=== PATIENT | female | born 1975 | race Caucasian/White ===

== ENCOUNTER 2016-07-01 10:06 | Emergency (ER) | payer MEDICAID ==
[2016-07-01] VITALS (7 sets, daily range): BP systolic 105–140; BP diastolic 70–88
[~2016-07-01] VITALS: Ht 175.3 cm; Wt 81.6 kg
[~2016-07-01 10:06] MED LIST: IBUPROFEN600 MG ORAL; PENICILLIN V P500 MG PO
[2016-07-01] MEDS ORDERED: Tubing IV Cassette IV ONE (10:25)
[2016-07-01 10:32] LABS: BASOPHILS % (AUTO) 0.7 % (0.0-2.0); EOSINOPHILS % (AUTO) 0.4 % (0.0-3.0); LYMPHOCYTES % (AUTO) 24.5 % (20.0-45.0); MEAN CORPUSCULAR HEMOGLOBIN 34.2 PG (27.0-31.0); MEAN CORPUSCULAR HGB CONC 34.9 G/DL (32.0-36.0); MEAN CORPUSCULAR VOLUME 98 FL (80-99); NEUTROPHILS % (AUTO) 67.3 % (45.0-75.0); PLATELET COUNT 610 K/UL (150-450); RED BLOOD COUNT 4.86 M/UL (4.20-5.40); RED CELL DISTRIBUTION WIDTH 11.5 % (11.6-14.8); WHITE BLOOD COUNT 9.3 K/UL (4.8-10.8)
[2016-07-01 10:42] LABS: ACETAMINOPHEN < 10 ug/mL (10-30); ALANINE AMINOTRANSFERASE 65 U/L (3-33); ALBUMIN/GLOBULIN RATIO 1.6 (1.0-2.7); ALCOHOL 277 mg/dL; ANION GAP 23 (5-15); ASPARTATE AMINO TRANSFERASE 97 U/L (5-40); CALCIUM 9.1 mg/dL (8.6-10.2); CARBON DIOXIDE 25 mEQ/L (20-30); CHLORIDE 92 mEQ/L (98-107); CREATININE 0.9 mg/dL (0.5-0.9); GLOMERULAR FILTRATION RATE > 60 mL/min (>60); HEMOLYSIS 39; POTASSIUM 4.1 mEQ/L (3.4-4.9); SODIUM 140 mEQ/L (135-145); TOTAL PROTEIN 7.8 g/dL (6.6-8.7)
[2016-07-01] MEDS ORDERED: BUPROPION XL300 MG ORAL (10:44)
[2016-07-01] MEDS ORDERED: KLONOPIN0.5 MG ORAL (10:44)
[2016-07-01] MEDS ORDERED: Antidepressant (10:44)
[2016-07-01] MEDS ORDERED: Famotidine 20 MG/ 2ML VIAL IVP ONE (11:15)
[2016-07-01] MEDS ORDERED: LORazepam Inj 2mg/ml 1ml ONE (11:27)
[2016-07-01] MEDS ORDERED: LORazepam Inj 2mg/ml 1ml IV ONE (11:30)
--- NOTE | 2016-07-01 15:04 | Emergency Room Report ---
History of Present Illness General Chief Complaint: Alcohol Intoxication Source: Patient Present Illness HPI 40-year-old female presents to ED for evaluation. EMS stated that patient has drank 3 bottles of vodka in the last few days. Patient is intoxicated upon arrival. Friend called 911 because she was concerned about the patient. Concern about possible danger to self. Patient denies any suicidal or homicidal ideation. Denies hearing voices. Denies any drug use. Patient is nauseous and vomiting. Denies any abdominal pain. No other aggravating relieving factors. Denies any other associated symptoms Allergies: Coded Allergies: NO KNOWN ALLERGIES (Unverified Allergy, Unknown, 03/12/15) Patient History Past Medical History: psych hx Past Surgical History: none Pertinent Family History: none Social History: Reports: alcohol use, Denies: drug use, smoking Last Menstrual Period: "I don't know" Now: No - (Denies) Reviewed Nursing Documentation: PMH: Agreed, PSxH: Agreed Nursing Documentation-PMH History Of Psychiatric Problem: Yes - Depression; Anxiety Review of Systems All Other Systems: negative except mentioned in HPI Physical Exam Vital Signs Date Time Temp Pulse Resp B/P Pulse Ox O2 Delivery O2 Flow Rate FiO2 07/01/16 09:59 100.0 98 18 149/95 98 Room Air Sp02 EP Interpretation: reviewed, normal General Appearance: no apparent distress, GCS 15, non-toxic, other - intoxicated Head: normocephalic, atraumatic Eyes: bilateral eye PERRL, bilateral eye normal inspection ENT: hearing grossly normal, normal pharynx, no angioedema, normal voice Neck: full range of motion, supple/symm/no masses Respiratory: chest non-tender, lungs clear, normal breath sounds, speaking full sentences Cardiovascular #1: regular rate, rhythm, no edema Cardiovascular #2: 2+ carotid (R), 2+ carotid (L), 2+ radial (R), 2+ radial (L) , 2+ dorsalis pedis (R), 2+ dorsalis pedis (L) Gastrointestinal: normal bowel sounds, non tender, soft, non-distended, no guarding, no rebound Rectal: deferred Genitourinary: normal inspection, no CVA tenderness Musculoskeletal: back normal, gait/station normal, normal range of motion, non- tender, calf tenderness Neurologic: alert, motor strength/tone normal, sensory intact, speech normal, other - intoxicated Psychiatric: mood/affect normal, no suicidal/homicidal ideation, other - intoxicated Reflexes: 3+ bicep (R), 3+ bicep (L), 3+ tricep (R), 3+ tricep (L), 3+ knee (R) , 3+ knee (L) Skin: normal color, no rash, warm/dry, well hydrated Lymphatic: no adenopathy Medical Decision Making Diagnostic Impression: Primary Impression: Acute alcoholic intoxication Qualified Codes: F10.129 - Alcohol abuse with intoxication, unspecified ER Course Hospital Course 40-year-old F presents to ED with altered mental status. History of alcohol abuse Differential diagnoses include: Psychosis, EtOH, drug abuse Clinical course patient placed on stretcher. On director of cardiac rehabilitation. After initial history and physical ordered labs, IV fluids, zofran, pepcid Labs reviewed-electrolytes okay, no leukocytosis, hemoglobin/hematocrit stable, ETOH > 200 Patient required Ativan for anxiety. Patient allowed to rest. Patient is now awake alert oriented x3, ambulating. No evidence of suicidal homicidal ideation. Patient be safely discharged to home i. I feel this is a highly complex case requiring extensive working including EKG/Rhythm strip, Xray/CT/US, Blood/urine lab work, repeat exams while in ED, and administration of strong opiates/narcotics for pain control, admission to hospital or close patient follow up. Diagnosis - ETOH intoxication Stable and discharged to home. Followup with PMD. Return to ED if symptoms recur or worsen Labs Test 07/01/16 10:20 White Blood Count 9.3 K/UL (4.8-10.8) Red Blood Count 4.86 M/UL (4.20-5.40) Hemoglobin 16.6 G/DL (12.0-16.0) Hematocrit 47.6 % (37.0-47.0) Mean Corpuscular Volume 98 FL (80-99) Mean Corpuscular Hemoglobin 34.2 PG (27.0-31.0) Mean Corpuscular Hemoglobin Concent 34.9 G/DL (32.0-36.0) Red Cell Distribution Width 11.5 % (11.6-14.8) Platelet Count 610 K/UL (150-450) Mean Platelet Volume 5.0 FL (6.5-10.1) Neutrophils (%) (Auto) 67.3 % (45.0-75.0) Lymphocytes (%) (Auto) 24.5 % (20.0-45.0) Monocytes (%) (Auto) 7.0 % (1.0-10.0) Eosinophils (%) (Auto) 0.4 % (0.0-3.0) Basophils (%) (Auto) 0.7 % (0.0-2.0) Sodium Level 140 mEQ/L (135-145) Potassium Level 4.1 mEQ/L (3.4-4.9) Chloride Level 92 mEQ/L (98-107) Carbon Dioxide Level 25 mEQ/L (20-30) Anion Gap 23 (5-15) Blood Urea Nitrogen 12 mg/dL (7-23) Creatinine 0.9 mg/dL (0.5-0.9) Estimat Glomerular Filtration Rate > 60 mL/min (>60) Glucose Level 84 mg/dL (74-106) Calcium Level 9.1 mg/dL (8.6-10.2) Total Bilirubin 0.5 mg/dL (0.0-1.2) Aspartate Amino Transf (AST/SGOT) 97 U/L (5-40) Alanine Aminotransferase (ALT/SGPT) 65 U/L (3-33) Alkaline Phosphatase 89 U/L (35-104) Total Protein 7.8 g/dL (6.6-8.7) Albumin 4.9 g/dL (3.5-5.2) Globulin 2.9 g/dL Albumin/Globulin Ratio 1.6 (1.0-2.7) Salicylates Level < 1 mg/dL (10-30) Acetaminophen Level < 10 ug/mL (10-30) Serum Alcohol 277 mg/dL Last Vital Signs Date Time Temp Pulse Resp B/P Pulse Ox O2 Delivery O2 Flow Rate FiO2 07/01/16 13:33 104 21 105/88 99 Room Air 07/01/16 09:59 100.0 Status: improved Disposition: HOME, SELF-CARE Condition: Stable Referrals: ANTHONY ALEJANDRO,REFERRING (PCP) SURESH MORENO M.D. Jul 01, 2016 15:04
== END 2016-07-01 19:45 | disposition home or self-care (01) ==
LOC: EDBD 10:06 → EMR 10:37
DX: F10.129 Alcohol abuse with intoxication, unspecified (principal); Z86.59 Personal history of other mental and behavioral disorders
CPT/HCPCS: 36415; 80053; 80300; 80329; 81025; 82962; 85025; 96361; 96374; 96375; 99284; J2405; S0028